=== PATIENT | female | born 1995 | race Asian ===

== ENCOUNTER 2024-05-26 15:35 | Emergency (ER) | payer OTHER ==
[~2024-05-26] VITALS: Ht 162.6 cm; Wt 59.1 kg
[2024-05-26 15:48] VITALS: TEMP 97.9
[2024-05-26 17:00] VITALS: BP 122/82; PULSE 72; RESP 16; O2SAT 99
[2024-05-26] MEDS ORDERED: ACET-66 PO (17:16)
[2024-05-26] MEDS ORDERED: BACI28.410 TP (17:16)
[2024-05-26] MEDS: BACITRACIN 0.9 GM PACKET OINTMENT TP ONE (17:29)
[2024-05-26] MEDS: HYDROGEN PEROXIDE 118 ML SOLUTION TP ONE (17:29)
[2024-05-26] MEDS: IBUPROFEN 600 MG TABLET PO ONE (17:29)
[2024-05-26] MEDS: ACETAMINOPHEN 500 MG TABLET PO ONE (17:29)
== END 2024-05-26 17:52 | disposition home or self-care (01) ==
LOC: EMS 15:35
DX: S51.851A Open bite of right forearm, initial encounter (principal); Z23 Encounter for immunization; W54.0XXA Bitten by dog, initial encounter; Y93.89 Activity, other specified; Y92.89 Other specified places as the place of occurrence of the external cause; Y99.8 Other external cause status
CPT/HCPCS: 99284; Z7502; Z7610